=== PATIENT | male | born 1930 | race Caucasian/White ===

== ENCOUNTER 2021-09-10 21:50 | Inpatient (IN) | payer MEDICARE, OTHER ==
[~2021-09-10] VITALS: Ht 167.6 cm; Wt 61.2 kg
[2021-09-10 22:38] LABS: HEMOGLOBIN 13.2 gm/dl (14.0-17.5); RED BLOOD COUNT 4.85 M/UL (4.20-5.50); WHITE BLOOD COUNT 16.7 K/UL (4.5-11.0)
[2021-09-11 00:41] LABS: BUN/CREATININE RATIO 27 (0-10)
[2021-09-11 06:35] LABS: HEMOGLOBIN 11.3 gm/dl (14.0-17.5); RED BLOOD COUNT 4.17 M/UL (4.20-5.50); WHITE BLOOD COUNT 12.9 K/UL (4.5-11.0)
[2021-09-11 07:35] LABS: BUN/CREATININE RATIO 25 (0-10)
[2021-09-11] MEDS ORDERED: ATORVASTATIN CA80 MG PO (10:12)
[2021-09-11] MEDS ORDERED: LEVOFLOXACIN500 MG PO (10:12)
[2021-09-11] MEDS ORDERED: AVAPRO300 MG PO (10:12)
[2021-09-11] MEDS ORDERED: FLORASTOR250 MG PO (10:13)
[2021-09-11] MEDS ORDERED: HYDROXYZINE PAM25 MG PO (10:13)
[2021-09-11] MEDS ORDERED: METHYLPREDNISOLO4 M1 PO (10:13)
[2021-09-11] MEDS ORDERED: ELIQUIS2.5 MG PO (10:31)
[2021-09-11] MEDS ORDERED: CARVEDILOL25 MG PO (10:32)
[2021-09-11] MEDS ORDERED: OMEPRAZOLE40 MG PO (10:32)
[2021-09-11] MEDS ORDERED: STOOL SOFTENER240 MG PO (10:34)
[2021-09-12 03:10] LABS: HEMOGLOBIN 10.7 gm/dl (14.0-17.5); RED BLOOD COUNT 3.93 M/UL (4.20-5.50); WHITE BLOOD COUNT 10.9 K/UL (4.5-11.0)
[2021-09-12 03:26] LABS: BUN/CREATININE RATIO 22 (0-10)
[2021-09-12 08:14] LABS: HEMOGLOBIN A1C 5.8 % (4.8-5.6)
[2021-09-13 03:17] LABS: HEMOGLOBIN 9.6 gm/dl (14.0-17.5); RED BLOOD COUNT 3.58 M/UL (4.20-5.50); WHITE BLOOD COUNT 11.6 K/UL (4.5-11.0)
[2021-09-13 04:32] LABS: BUN/CREATININE RATIO 32 (0-10)
--- NOTE | 2021-09-13 11:47 | NUR ---
DR SEPULVEDA AT BEDSIDE EXPLAINING PROCEDURE FOR THORACENTISIS TO PATIENT. AT THIS TIME PT IS REFUSING PROCEDURE. RISKS EXPLAINED TO PATIENT. WILL CONTINUE TO MONITOR.
[2021-09-14 06:46] LABS: HEMOGLOBIN 9.5 gm/dl (14.0-17.5); RED BLOOD COUNT 3.51 M/UL (4.20-5.50)
[2021-09-14 06:49] LABS: WHITE BLOOD COUNT 16.7 K/UL (4.5-11.0)
[2021-09-14 07:19] LABS: BUN/CREATININE RATIO 35 (0-10)
--- NOTE | 2021-09-14 07:30 | NUR ---
REPORT GIVEN TO ANTHONY DURAN ON MED SURG 4
[2021-09-15 06:28] LABS: HEMOGLOBIN 9.1 gm/dl (14.0-17.5); RED BLOOD COUNT 3.33 M/UL (4.20-5.50); WHITE BLOOD COUNT 15.7 K/UL (4.5-11.0)
[2021-09-15 06:46] LABS: BUN/CREATININE RATIO 39 (0-10)
[2021-09-15] MEDS ORDERED: PROAIR HFA8.5 GM INH (11:33)
[2021-09-15] MEDS ORDERED: CARVEDILOL12.5 MG PO (11:33)
[2021-09-15] MEDS ORDERED: CEFUROXIME500 MG PO (11:33)
[2021-09-15] MEDS ORDERED: ASPIRIN EC81 MG PO (11:33)
[2021-09-15] MEDS ORDERED: FLOMAX 0.4 MG0.4 MG PO (11:33)
[2021-09-15] MEDS ORDERED: AMLODIPINE BESYL5 MG PO (11:33)
[2021-09-15] MEDS ORDERED: ISOSORBIDE MONO30 MG PO (11:33)
[2021-09-15] MEDS ORDERED: BREO ELLIPTA 11 EACH INH (11:33)
[2021-09-15] MEDS ORDERED: PREDNISONE 10 M10 MG PO (11:33)
--- NOTE | 2021-09-15 18:01 | NUR ---
CALLED EMS FOR UPDATE ON TRANSFER TO [place]. EMS STATED PATIENT WAS ON TRANSPORT LIST AND WOULD BE TRANSPORTED SOON POSSIBLE.
== END 2021-09-15 21:56 | DRG 193 ==
LOC: ER1 21:50 → MED SURG 4 09-11 07:31 → PROG CARE 09-11 07:31 → CDU 09-11 07:31 → PROG CARE 09-11 15:03 → MED SURG 4 09-14 07:30
PROVIDERS: Internal Medicine; Internal Medicine Infectious Disease; Nurse Practitioner; ADMIT Internal Medicine
PROC: B24BZZZ Ultrasonography of Heart with Aorta (ICD-10-PCS; principal; 2021-09-12)
DX: J18.9 Pneumonia, unspecified organism (principal); E43 Unspecified severe protein-calorie malnutrition; J96.01 Acute respiratory failure with hypoxia; Z20.822 Contact with and (suspected) exposure to COVID-19; Z66 Do not resuscitate; I50.33 Acute on chronic diastolic (congestive) heart failure; N17.9 Acute kidney failure, unspecified; E87.2 Acidosis; J43.9 Emphysema, unspecified; F17.220 Nicotine dependence, chewing tobacco, uncomplicated; I11.0 Hypertensive heart disease with heart failure; E86.0 Dehydration; R19.7 Diarrhea, unspecified; E87.6 Hypokalemia; I27.20 Pulmonary hypertension, unspecified; I48.0 Paroxysmal atrial fibrillation; I25.10 Atherosclerotic heart disease of native coronary artery without angina pectoris; I08.3 Combined rheumatic disorders of mitral, aortic and tricuspid valves; I08.1 Rheumatic disorders of both mitral and tricuspid valves; E78.5 Hyperlipidemia, unspecified; L89.151 Pressure ulcer of sacral region, stage 1; N40.0 Benign prostatic hyperplasia without lower urinary tract symptoms; Z79.01 Long term (current) use of anticoagulants; Z79.82 Long term (current) use of aspirin; Z95.1 Presence of aortocoronary bypass graft; Z95.5 Presence of coronary angioplasty implant and graft; Z90.49 Acquired absence of other specified parts of digestive tract; I25.2 Old myocardial infarction
CPT/HCPCS: ECHO; 36415; 71045; 80048; 80053; 82550; 82553; 83036; 83605; 83735; 83880; 84100; 84439; 84443; 84484; 84550; 85025; 85610; 85730; 86140; 87040; 87081; 87449; 93005; 93306; 94640; 94664; 94667; 94668; 94760; 96374; 96375; 96376; 97110; 97116-GP-CQ; 97161; 97166; 97530-GP-CQ; 99285; A6212; J0692; J0696; J1940; J2920; J3370; J3475; J3480; J7070; Q0177; U0002